=== PATIENT | male | born 1980 | race Caucasian/White ===

== ENCOUNTER 2024-06-27 01:51 | Emergency (ER) | payer SELFPAY ==
[2024-06-27 01:55] VITALS: BP 142/88; PULSE 109; RESP 20; TEMP 36.6; O2SAT 100
[2024-06-27 04:04] VITALS: BP 141/98; PULSE 100; RESP 18; O2SAT 100
--- NOTE | 2024-06-27 04:32 | ED_ITS ---
HPI - General Adult General Chief complaint: Unspecified Stated complaint: high blood pressure Time Seen by Provider: 06/27/24 04:15 History of Present Illness HPI narrative: 43-year-old male with a past medical history including hypertension was previously on multiple medications including metoprolol tartrate, lisinopril and hydrochlorothiazide. He presents today as he feels his blood pressure was high. Denies any symptoms. Has not seen a doctor in over a year and a half. Does n ot have a PCP. Denies any symptoms such as fever, chills, headache, nausea, vomiting. No chest pain shortness a breath. Review of Systems Review of Systems: As reviewed above in HPI Exam Narrative: GENERAL: [Well-appearing, well-nourished, and in no acute distress.] HEAD: [Normocephalic, atraumatic.] EYES: [PERRLA and EOMI.] ENT: Nares clear, no rhinorrhea or epistaxis. Mucous membranes moist. NECK: Supple. CHEST: [Clear to auscultation. No respiratory distress.] HEART: [Regular rate and rhythm]. No murmur heard. [Normal peripheral pulses.] ABDOMEN: [Soft, nondistended], [nontender], [No rigidity or guarding] EXTREMITIES: Normal range of motion. [No edema.] SKIN: Warm, dry, no rash. NEURO: [No focal deficits]. Alert and oriented [x3.] PSYCH: [Normal mood and affect.] Course Vital Signs Vital signs: Vital Signs Temperature 36.6 C 06/27/24 01:55 Pulse Rate 109 H 06/27/24 01:55 Respiratory Rate 20 06/27/24 01:55 Blood Pressure 142/88 H 06/27/24 01:55 Pulse Oximetry 100 06/27/24 01:55 Temperature 36.6 C 06/27/24 01:55 Pulse Rate 100 06/27/24 04:04 Respiratory Rate 18 06/27/24 04:04 Blood Pressure 141/98 H 06/27/24 04:04 Pulse Oximetry 100 06/27/24 04:04 Medical Decision Making [facility] Narrative Medical decision making narrative: 43-year-old otherwise healthy male with history of hypertension presenting with elevated blood pressure readings at home. He was concerned that he needs to start taking blood pressure medicines again but does not have a PCP. He is currently asymptomatic. No red flag signs of his history or examination concerning for hypertensive urgency or emergency. Mildly elevated blood pressure 141/98. No tachycardia, fever, hypoxia. Strong radial pulses, warm e xtremities. Patient was previously on multiple medications but we will start him low on a single agent that tolerated well previously including metoprolol tartrate 12.5 mg. He will be given a 30 day supply and a primary care provider that he can follow-up with. Patient's questions were answered he was safe for discharge at this time. Medical Records Medical records reviewed: Yes I reviewed the external patient's medical records. Vital Signs Vital Signs: Vital Signs Temperature 36.6 C 06/27/24 01:55 Pulse Rate 109 H 06/27/24 01:55 Respiratory Rate 20 06/27/24 01:55 Blood Pressure 142/88 H 06/27/24 01:55 Pulse Oximetry 100 06/27/24 01:55 Temperature 36.6 C 06/27/24 01:55 Pulse Rate 100 06/27/24 04:04 Respiratory Rate 18 06/27/24 04:04 Blood Pressure 141/98 H 06/27/24 04:04 Pulse Oximetry 100 06/27/24 04:04 Discharge Plan Discharge Clinical Impression: Asymptomatic hypertension Patient Disposition: Home, Self-Care Condition: Stable Instructions: Antibiotic Form, Hypertension (ED) Additional Instructions: Take blood pressure medication once in the morning and once in the evening. We will refer you to her local PCP to establish care. Follow-up with them on outpatient basis. Return if you have any new or worsening concerns. Patient Language: Welsh Prescriptions: New metoprolol tartrate 25 mg tablet 12.5 mg PO BID 30 Days Qty: 30 0RF Follow-up/Referrals: Lance White MD [Physician] - 3 Days (Establish care, PCP) UNKNOWN,DOCTOR [Primary Care Provider] - Time of Disposition: 04:34
--- OUTSIDE RECORDS SUMMARY | 2024-06-27 04:43 | XMS_ITS | CONTINUITY OF CARE DOCUMENT ---
Author Name mandeep kaufman Address Unknown Organization [facility] Address [id number] [place] [address] [address] [place] [address] Phone [phone] Care Team Providers Care [employer] Name Role Phone mandeep kaufman Unavailable Unavailable
[2024-06-27 04:50] VITALS: PULSE 96
[2024-06-27] MEDS: METOPROLOL TARTRATE 12.5 MG TABLET PO (04:50)
[2024-06-27 04:55] VITALS: BP 137/91; PULSE 89; RESP 19; O2SAT 100
== END 2024-06-27 04:55 | disposition home or self-care (01) ==
LOC: ANHED 04:41
PROVIDERS: Emergency Provider Student in an Organized Health Care Education/Training Program
DX: I10 Essential (primary) hypertension (principal); Z79.899 Other long term (current) drug therapy
CPT/HCPCS: 99283; A9270